=== PATIENT | female | born 1940 | race Caucasian/White ===

== ENCOUNTER 2019-02-12 15:20 | Outpatient (CLI) | payer MEDICARE, OTHER ==
--- NOTE | 2019-02-12 19:45 | XRAY Report ---
Reason: pneumonia Procedure Date: 02/12/2019 Accession Number: [id number] Procedure: XRN - Chest 2 View X-Ray CPT Code: 75694 FULL RESULT: EXAM: CHEST RADIOGRAPHY EXAM DATE: 02/12/2019 03:37 PM. CLINICAL HISTORY: Pneumonia. COMPARISON: None. TECHNIQUE: 2 views. FINDINGS: Lungs/Pleura: No focal opacities evident. No pleural effusion. No pneumothorax. Normal volumes. Mediastinum: Heart and mediastinal contours are unremarkable. Other: Old healed right posterior 6,7 and eighth rib fractures noted. IMPRESSION: No acute cardiopulmonary process. RADIA
== END 2019-02-12 15:21 | disposition home or self-care (01) ==
LOC: DI.N 15:20
PROVIDERS: ATTEND Specialist
DX: J18.9 Pneumonia, unspecified organism (principal)
CPT/HCPCS: 71046

== ENCOUNTER 2020-05-31 10:11 | Outpatient (CLI) | payer MEDICARE, OTHER ==
--- NOTE | 2020-05-31 14:34 | XRAY Report ---
PROCEDURE: Chest 2 View X-Ray INDICATIONS: SOB TECHNIQUE: 2 view(s) of the chest. COMPARISON: 02/12/2019 FINDINGS: Surgical changes and devices: None. Lungs and pleura: No pleural effusions or pneumothorax. Lungs demonstrate diffuse thickening of the interstitial markings bilaterally. No focal consolidations. Mediastinum: Mediastinal contours are normal. No central venous congestion Heart size is normal. Bones and chest wall: Multiple mid and lower thoracic, chronic appearing compression fractures with endplate spurring. Is allowed for an accentuation of the thoracic kyphosis. There is deformity of rem ote, healed right rib fractures. No suspicious bony abnormalities. Soft tissues appear unremarkable. IMPRESSION: 1. Chronic diffuse thickening of the interstitial markings in both lungs is somewhat nonspecific, com monly related to chronic interstitial edema, emphysema, less likely interstitial pneumonitis or fibro sis given distribution. Findings are not significantly changed since the previous study. 2. Remote right rib and thoracic spine fractures. Reviewed by: Dunia Melton MD on 05/31/2020 2:33 PM PDT Approved by: Dunia Melton MD on 05/31/2020 2:33 PM PDT Station ID: [id number]
== END 2020-05-31 10:12 | disposition home or self-care (01) ==
LOC: DI.N 10:11
PROVIDERS: ATTEND Family Medicine
DX: R91.8 Other nonspecific abnormal finding of lung field (principal); S22.41XD Multiple fractures of ribs, right side, subsequent encounter for fracture with routine healing; S22.000D Wedge compression fracture of unspecified thoracic vertebra, subsequent encounter for fracture with routine healing
CPT/HCPCS: 71046

== ENCOUNTER 2021-05-16 12:15 | Outpatient (CLI) | payer MEDICARE, OTHER ==
--- NOTE | 2021-05-16 15:51 | XRAY Report ---
PROCEDURE: Chest 2 View X-Ray INDICATIONS: PNA IN R LOWER LOBE TECHNIQUE: 2 view(s) of the chest. COMPARISON: None. FINDINGS: Surgical changes and devices: None. Lungs and pleura: No pleural effusions or pneumothorax. Diffuse ill-defined and atelectatic opacitie s. No interval change. No acute consolidation. Mediastinum: Mediastinal contours are normal. Heart size is normal. Redemonstrated right rib fractures are unchanged IMPRESSION: Diffuse scarring/atelectasis. No acute disease or interval change. Reviewed by: Arcadio Brown MD on 05/16/2021 3:49 PM PDT Approved by: Arcadio Brown MD on 05/16/2021 3:49 PM PDT Station ID: [id number]
== END 2021-05-16 12:16 | disposition home or self-care (01) ==
LOC: DI.N 12:15
PROVIDERS: ATTEND Physician Assistant
DX: J44.0 Chronic obstructive pulmonary disease with (acute) lower respiratory infection (principal)

== ENCOUNTER 2022-01-23 13:11 | Outpatient (CLI) | payer MEDICARE, OTHER ==
--- NOTE | 2022-01-23 16:16 | XRAY Report ---
PROCEDURE: Chest 2 View X-Ray INDICATIONS: COUGH TECHNIQUE: 2 view(s) of the chest. COMPARISON: 05/16/2021 FINDINGS: Surgical changes and devices: None. Lungs and pleura: No pleural effusions or pneumothorax. Mild diffuse reticulonodular pulmonary opaci ty. Mediastinum: Mediastinal contours are normal. Heart size is normal. Bones and chest wall: No suspicious bony abnormalities. Soft tissues appear unremarkable. IMPRESSION: No acute process. Reviewed by: Cristofer Allen MD on 01/23/2022 4:15 PM PDT Approved by: Cristofer Allen MD on 01/23/2022 4:15 PM PDT Station ID: [id number]
== END 2022-01-23 13:12 | disposition home or self-care (01) ==
LOC: DI.N 13:11
PROVIDERS: ATTEND Physician Assistant
DX: J44.9 Chronic obstructive pulmonary disease, unspecified (principal); I48.92 Unspecified atrial flutter

== ENCOUNTER 2022-11-08 09:58 | Outpatient (CLI) | payer MEDICARE, OTHER | END 2022-11-08 09:59 | disposition EMS.NT | LOC: EMS 09:58 | DX: Z03.89 Encounter for observation for other suspected diseases and conditions ruled out (principal) ==

== ENCOUNTER 2023-03-31 09:21 | Outpatient (CLI) | payer MEDICARE, OTHER ==
--- NOTE | 2023-03-31 12:57 | XRAY Report ---
PROCEDURE: Shoulder 3 View LT INDICATIONS: M75.102 TECHNIQUE: 3 views of the shoulder were acquired. COMPARISON: None. FINDINGS: Bones: No fractures or dislocations. No suspicious bony lesions. Visualized ribs appear intact. Moderate to severe acromioclavicular degenerative narrowing. Mild to moderate glenohumeral degenerati ve narrowing with small humeral head osteophyte. Soft tissues: No suspicious soft tissue calcifications. IMPRESSION: Moderate to severe acromioclavicular and mild to moderate glenohumeral arthritic narrowing. Reviewed by: Sindhu Paul MD on 03/31/2023 12:56 PM PDT Approved by: Sindhu Paul MD on 03/31/2023 12:56 PM PDT Station ID: [id number]
== END 2023-03-31 09:22 | disposition home or self-care (01) ==
LOC: DI.N 09:21
PROVIDERS: ATTEND Internal Medicine
DX: M75.102 Unspecified rotator cuff tear or rupture of left shoulder, not specified as traumatic (principal); M19.012 Primary osteoarthritis, left shoulder

== ENCOUNTER 2023-10-24 09:59 | Outpatient (CLI) | payer MEDICARE, OTHER | END 2023-10-24 10:00 | disposition home or self-care (01) | LOC: DI 09:59 | PROVIDERS: ATTEND Student in an Organized Health Care Education/Training Program | DX: Z53.9 Procedure and treatment not carried out, unspecified reason (principal) ==

== ENCOUNTER 2023-11-01 10:26 | Outpatient (CLI) | payer MEDICARE, OTHER ==
--- NOTE | 2023-11-01 11:27 | XRAY Report ---
PROCEDURE: Chest 2V INDICATIONS: ABNORMAL WEIGHT LOSS TECHNIQUE: 2 views of the chest were acquired. COMPARISON: 03/25/2022. FINDINGS: Surgical changes and devices: None. Lungs and pleura: Nodularity in the right lower lung zone, stable from prior and likely representing a scar. Increased pulmonary markings. Mediastinum: Mediastinal contours appear normal. Heart size is normal. Bones and chest wall: Multiple compression deformities. IMPRESSION: Increased pulmonary markings, suggestive of pulmonary edema versus interstitial lung disease. Reviewed by: Mo Saavedra MD on 11/01/2023 11:25 AM PST Approved by: Mo Saavedra MD on 11/01/2023 11:25 AM PST Station ID: [id number]
== END 2023-11-01 10:27 | disposition home or self-care (01) ==
LOC: DI 10:26
PROVIDERS: ATTEND Student in an Organized Health Care Education/Training Program
DX: R63.4 Abnormal weight loss (principal); R91.8 Other nonspecific abnormal finding of lung field

== ENCOUNTER 2024-02-25 10:57 | Outpatient (CLI) | payer MEDICARE ==
--- NOTE | 2024-02-25 15:32 | XRAY Report ---
PROCEDURE: Wrist 3+V BL INDICATIONS: WRIST PAIN TECHNIQUE: 3 views of the both wrists were acquired. COMPARISON: None. FINDINGS: Bones: No acute fractures or dislocations. No suspicious bony lesions. Bones are osteopenic. Severe degenerative changes are seen at the 1st carpometacarpal joints bilaterally. Juxta articular lucenci es are seen at the right 1st metacarpal base. Additional lucencies are also partially included adjace nt to the left 2nd proximal interphalangeal joint. Soft tissues: No suspicious soft tissue calcifications. IMPRESSION: Severe arthritic changes at the 1st carpometacarpal joints bilaterally. Juxtaarticular lucencies at t he right 1st metacarpal base may represent chronic osseous erosions or degenerative subchondral cysts . Findings may be related to primary osteoarthrosis versus a chronic inflammatory arthritis with supe rimposed degenerative changes. Reviewed by: Josue Fontanez MD on 02/25/2024 3:30 PM PDT Approved by: Josue Fontanez MD on 02/25/2024 3:30 PM PDT Station ID: [id number]
--- NOTE | 2024-02-25 15:36 | XRAY Report ---
PROCEDURE: Hand 3+V BL INDICATIONS: HAND PAIN TECHNIQUE: 3 views of the both hands acquired. COMPARISON: None. FINDINGS: Bones: No acute fractures or dislocations. No suspicious bony lesions. Generalized osteopenia. Se marisol degenerative changes are seen at the 1st carpometacarpal joints bilaterally. Juxta articular moises encies are seen at the right 1st metacarpal base. Moderate to severe arthritic changes are seen throu ghout the interphalangeal joints of the fingers, most notably at the left 2nd proximal interphalangea l joint with adjacent articular lucencies. Findings are also more prominent at the left 2nd, 3rd, and 5th distal interphalangeal joints and right 3rd distal interphalangeal joint. Soft tissues: No suspicious soft tissue calcifications. IMPRESSION: Severe bilateral arthritic changes predominantly involving the 1st carpometacarpal joints and the int erphalangeal joints of the fingers. Juxta-articular lucencies are seen that may represent degenerativ e subchondral cystic changes or chronic osseous erosions. Reviewed by: Josue Fontanez MD on 02/25/2024 3:35 PM PDT Approved by: Josue Fontanez MD on 02/25/2024 3:35 PM PDT Station ID: [id number]
--- NOTE | 2024-02-26 08:32 | XRAY Report ---
PROCEDURE: Shoulder 2+V BL INDICATIONS: SHOULDER PAIN TECHNIQUE: 3 views of the shoulder were acquired. COMPARISON: None. FINDINGS: Bones: No fractures or dislocations. No suspicious bony lesions. Moderate to severe cortical clavic ular and glenohumeral joint degeneration bilaterally. Calcification over the right humeral head sugge sting calcific tendinitis. Osteopenia. Old right superior ribs fractures are noted. Soft tissues: No suspicious soft tissue calcifications. The visualized lungs are within normal limi ts. IMPRESSION: 1. [id number] degenerative joint disease bilaterally. 2. Suspect right rotator cuff calcific tendinitis. 3. Osteopenia. Reviewed by: Cathleen Jim MD on 02/26/2024 8:30 AM PDT Approved by: Cathleen Jim MD on 02/26/2024 8:30 AM PDT Station ID: [id number]
== END 2024-02-25 10:58 | disposition home or self-care (01) ==
LOC: DI 10:57
PROVIDERS: ATTEND Physician Assistant
DX: M18.0 Bilateral primary osteoarthritis of first carpometacarpal joints (principal); M19.041 Primary osteoarthritis, right hand; M19.042 Primary osteoarthritis, left hand; M19.011 Primary osteoarthritis, right shoulder; M19.012 Primary osteoarthritis, left shoulder; M85.812 Other specified disorders of bone density and structure, left shoulder; M85.811 Other specified disorders of bone density and structure, right shoulder